=== PATIENT | female | born 1995 | race Caucasian/White ===

== ENCOUNTER 2025-03-23 21:15 | Emergency (ER) | payer MEDICAID ==
[~2025-03-23] VITALS: Ht 167.6 cm; Wt 59.0 kg
[2025-03-23 21:21] VITALS: O2SAT 100
[2025-03-23 22:31] VITALS: BP 102/69; PULSE 66; RESP 16; TEMP 36.8; O2SAT 99
== END 2025-03-23 22:35 | disposition home or self-care (01) ==
LOC: ER 21:15
DX: M79.601 Pain in right arm (principal); R20.0 Anesthesia of skin
CPT/HCPCS: 81025; 99282